=== PATIENT | female | born 1960 | race African-American/Black ===

== ENCOUNTER 2016-08-18 13:36 | Emergency (ER) | payer OTHER ==
[~2016-08-18] VITALS: Wt 78.5 kg
[~2016-08-18 13:36] MED LIST: LORA1TAB PO; NORG1TAB55 PO; PROP40TA4 PO
[2016-08-18] MEDS ORDERED: ASPIRIN 325 MG TAB PO STA (13:51)
[2016-08-18 14:11] LABS: ADD SCAN DIFF NO
[2016-08-18 14:16] LABS: ABNORMAL IP MESSAGE 1; BASOPHILS % 0.5 % (0.0-2.0); EOSINOPHILS # 0.1 10^3/ul (0.0-0.5); HEMATOCRIT 42.5 % (37.0-47.0); HEMOGLOBIN 13.7 g/dl (12.0-16.0); LYMPHOCYTES # 1.3 10^3/ul (0.8-2.9); LYMPHOCYTES % 33.2 % (15.0-51.0); MEAN CORPUSCULAR HEMOGLOBIN 28.5 pg (29.0-33.0); MEAN CORPUSCULAR HGB CONC 32.2 g/dl (32.0-37.0); MEAN CORPUSCULAR VOLUME 88.5 fl (82.0-101.0); MEAN PLATELET VOLUME 13.3 fl (7.4-10.4); MONOCYTE # 0.3 10^3/ul (0.3-0.9); MONOCYTES % 8.1 % (0.0-11.0); NEUTROPHIL # 2.2 10^3/ul (1.6-7.5); NEUTROPHILS % 55.4 % (39.0-77.0); PLATELET COUNT 148 10^3/UL (140-415); RED CELL DISTRIBUTION WIDTH 14.6 % (11.5-14.5); WHITE BLOOD COUNT 3.9 10^3/ul (4.8-10.8)
[2016-08-18] MEDS ORDERED: LIDOCAINE/MYLANTA 40 ML BTL PO ONE (14:30)
[2016-08-18 14:31] LABS: INR 0.98
[2016-08-18 14:32] LABS: PARTIAL THROMBOPLASTIN TIME 29.4 Sec (25.0-35.0)
[2016-08-18 14:34] LABS: ANION GAP 13 (8-16); BLOOD UREA NITROGEN 11 mg/dl (7-20); CALCIUM 9.8 mg/dl (8.4-10.2); CARBON DIOXIDE 25 mmol/L (21-31); CHLORIDE 108 mmol/L (97-110); CREATININE 0.96 mg/dl (0.44-1.00); GLUCOSE 93 mg/dl (70-220); POTASSIUM 3.6 mmol/L (3.5-5.1); SODIUM 142 mmol/L (135-144)
[2016-08-18 14:57] LABS: B-TYPE NATRIURETIC PEPTIDE 59 PG/ML (0-125); TROPONIN-I < 0.012 ng/ml (0.00-0.12)
[2016-08-18] MEDS ORDERED: morphine 4 MG/ML VIAL IV STA (15:26)
--- NOTE | 2016-08-18 15:27 | RADRPT ---
PROCEDURE: XR Chest. CLINICAL INDICATION: Chest pain. TECHNIQUE: Single frontal view. COMPARISON: 07/29/2015. FINDINGS: The lungs are clear. The heart size is normal. There is no pleural effusion. There is no pneumothorax. IMPRESSION: 1. Normal chest radiograph. 2. No change from 07/29/2015. RPTAT: QQ .Callum Aviles MD, MD Date Time Electronically viewed and signed by .Callum Aviles MD, MD on 08/18/2016 15:26 .R/
[2016-08-18] MEDS ORDERED: LORAZEPAM 2 MG INJ IV ONE (15:30)
[2016-08-18] MEDS ORDERED: NIT4 SL (15:39)
[2016-08-18] MEDS ORDERED: ASPI-664 PO (15:40)
[2016-08-18] MEDS ORDERED: ATEN-51 PO (15:45)
[2016-08-18] MEDS ORDERED: DILT180C75 PO (15:45)
[2016-08-18] MEDS ORDERED: PRAV40TA76 PO (15:46)
[2016-08-18] MEDS ORDERED: LORA1TAB PO (15:46)
[2016-08-18] MEDS ORDERED: ERGO500037 PO (15:47)
[2016-08-18] MEDS ORDERED: RANI150T5 PO (18:11)
[2016-08-18] MEDS ORDERED: ALPR0.5T PO (18:11)
--- NOTE | 2016-08-18 18:16 | ERD ---
ER Documentation Chief Complaint Date/Time DATE: 08/18/16 TIME: 18:12 Chief Complaint cp since 1230, took 2 nitro. unresolved HPI This 56-year-old female presented emergency room for chest pain that had begun an hour prior to presentation while she was standing and active. She took 2 nitroglycerin prior to arrival. She did have some shortness of breath with the chest pain and some nausea that is resolving. Chest pain is substernal and described as a sharp pain. States that she had a chest pain workup with stress test at [facility] 2 months ago that came out negative. She states that [employer] usually works for her chest pain. ROS All systems reviewed and are negative except as per history of present illness. Medications Home Meds Active Scripts Ranitidine Hcl* (Ranitidine Hcl*) 150 Mg Tablet, 150 MG PO Q12, #20 TAB Prov:BARBARA MORFIN DO 08/18/16 Alprazolam* (Xanax*) 0.5 Mg Tab, 0.5 MG PO Q8H Y for ANXIETY, #7 TAB Prov:NAVJOTBARBARA DO 08/18/16 Reported Medications Ergocalciferol (Vitamin D2) (VITAMIN D2) 50,000 Unit Capsule, 89276 UNIT PO Q7D , CAP 08/18/16 Lorazepam* (Lorazepam*) 1 Mg Tablet, 1 MG PO HS Y for ANXIETY, #30 TAB 08/18/16 Pravastatin Sodium* (Pravastatin Sodium*) 40 Mg Tablet, 40 MG PO HS, TAB 08/18/16 Diltiazem Hcl* (Cardizem CD*) 180 Mg Cap.sr.24h, 180 MG PO DAILY, #30 CAP 08/18/16 Atenolol* (Atenolol*) 25 Mg Tablet, 25 MG PO DAILY, #30 TAB 08/18/16 Aspirin* (Aspirin* EC) 81 Mg Tablet.dr, 81 MG PO DAILY, TAB 08/18/16 Nitroglycerin* (Nitrostat*) 0.4 Mg Tab.subl, 0.4 MG SL Q5MIN Y for CHEST PAIN, BOTTLE 08/18/16 Discontinued Reported Medications Propranolol Hcl* (Propranolol Hcl*) 40 Mg Tablet, 40 MG PO BID, TAB 09/16/15 Lorazepam* (Lorazepam*) 1 Mg Tablet, 1 MG PO BID Y for ANXIETY, #30 TAB 09/16/15 Discontinued Scripts Norgestimate-Ethinyl Estradiol (Sprintec) 1 Tab Tablet, 3 TAB PO twice a day for 2 Days, #2 TAB Then 2 by mouth twice a day 2 days, then one by mouth daily. Skipped the last week of pills and restart new pack at 1 by mouth daily Prov:MERRITT IQBAL DO 09/16/15 Allergies Allergies: Coded Allergies: No Known Allergy (Unverified , 08/18/16) PMhx/Soc History of Surgery: No Anesthesia Reaction: No Hx Neurological Disorder: No Hx Respiratory Disorders: No Hx Cardiac Disorders: Yes (PT STATES SHE HAS AFIB HX) Hx Psychiatric Problems: No Hx Miscellaneous Medical Probl: Yes (depression) Hx Alcohol Use: No Hx Substance Use: No Hx Tobacco Use: No (STOPPED SMOKING 2013) Smoking Status: Former smoker Physical Exam Vitals Vital Signs Date Time Temp Pulse Resp B/P Pulse Ox O2 Delivery O2 Flow Rate FiO2 08/18/16 15:11 98.6 59 13 151/87 100 Room Air 08/18/16 13:38 98.1 57 20 144/78 99 Physical Exam Const: [] No distress Head: Atraumatic Eyes: Normal Conjunctiva ENT: Normal External Ears, Nose and Mouth. Neck: Full range of motion..~ No meningismus. Resp: Clear to auscultation bilaterally Cardio: Regular rate and rhythm, no murmurs Abd: Soft, non tender, non distended. Normal bowel sounds Skin: No petechiae or rashes Back: No midline or flank tenderness Ext: No cyanosis, or edema Neur: Awake and alert and oriented 3, no focal deficits Psych: Mild anxiety Result Diagram: 08/18/16 1400 08/18/16 1400 Results 24 hrs Laboratory Tests Test 08/18/16 14:00 08/18/16 16:45 White Blood Count 3.910^3/ul Red Blood Count 4.8010^6/ul Hemoglobin 13.7g/dl Hematocrit 42.5% Mean Corpuscular Volume 88.5fl Mean Corpuscular Hemoglobin 28.5pg Mean Corpuscular Hemoglobin Concent 32.2g/dl Red Cell Distribution Width 14.6% Platelet Count 33998^3/UL Mean Platelet Volume 13.3fl Neutrophils % 55.4% Lymphocytes % 33.2% Monocytes % 8.1% Eosinophils % 2.0% Basophils % 0.5% Nucleated Red Blood Cells % 0.0/100WBC Neutrophils # 2.210^3/ul Lymphocytes # 1.310^3/ul Monocytes # 0.310^3/ul Eosinophils # 0.110^3/ul Basophils # 0.010^3/ul Nucleated Red Blood Cells # 0.010^3/ul Prothrombin Time 13.0Sec Prothrombin Time Ratio 1.0 INR International Normalized Ratio 0.98 Activated Partial Thromboplast Time 29.4Sec Sodium Level 142mmol/L Potassium Level 3.6mmol/L Chloride Level 108mmol/L Carbon Dioxide Level 25mmol/L Anion Gap 13 Blood Urea Nitrogen 11mg/dl Creatinine 0.96mg/dl Glucose Level 93mg/dl Calcium Level 9.8mg/dl Troponin I < 0.012ng/ml < 0.012ng/ml B-Type Natriuretic Peptide 59PG/ML Current Medications Medications (Trade) Dose Ordered Sig/Lenin Route PRN Reason Start Time Stop Time Status Last Admin Dose Admin Aspirin (Aspirin) 325 mg ONCE STAT PO 08/18/16 13:51 08/18/16 13:52 DC 08/18/16 14:14 Miscellaneous Medication (Gi Cocktail (2)) 40 ml ONCE ONCE PO 08/18/16 14:30 08/18/16 14:31 DC 08/18/16 14:14 Morphine Sulfate (morphine) 4 mg ONCE STAT IV 08/18/16 15:26 08/18/16 15:27 DC 08/18/16 15:46 Lorazepam (Ativan) 1 mg ONCE ONCE IV 08/18/16 15:30 08/18/16 15:31 DC Procedures/MDM Atypical chest pain unlikely acute coronary syndrome with 2 negative troponins and a negative stress test 2 months ago. Possible anxiety factors patient states that Ativan works for chest pain that did indeed work this time. She was given a aspirin as well as a GI cocktail. These did not help her pain. She was then given morphine and Ativan which took her pain away completely. She is asymptomatic in the emergency room. Going to discharge her with primary care follow-up in the next couple of days as well as return precautions to the ER. EKG interpretation: Normal sinus rhythm rate of 61, normal axis, no ST or T- wave changes concerning for acute ischemia, normal intervals. Normal EKG residential monitor interpretation: Normal sinus rhythm with occasional sinus bradycardia and no other arrhythmias Chest x-ray interpretation: I see no acute process. I see no widened mediastinum, no pulmonary edema, no infiltrate, no fractures Departure Diagnosis: Primary Impression: Anxiety Additional Impression: Chest pain Condition: Stable Patient Instructions: Your Body's Response to Anxiety, Chest Pain, Uncertain Cause Additional Instructions: Call your primary care doctor TOMORROW for an appointment during the next 2-3 days.See the doctor sooner or return here if your condition worsens before your appointment time. BARBARA MORFIN DO Aug 18, 2016 18:16
[2016-08-18 18:40] VITALS: BP 149/96; PULSE 63; RESP 16; TEMP 98.4
== END 2016-08-18 18:42 | disposition home or self-care (01) ==
LOC: E/R 13:36
DX: F41.9 Anxiety disorder, unspecified (principal); R06.02 Shortness of breath; Z79.82 Long term (current) use of aspirin; Z87.891 Personal history of nicotine dependence
CPT/HCPCS: 71010; 80048; 83880; 84484; 85025; 85610; 85730; 93005; 96374; J2270; Z7502; Z7610